=== PATIENT | female | born 2000 | race Hispanic/Latino ===

== ENCOUNTER 2023-08-11 11:20 | Outpatient (CLI) | payer OTHER, SELFPAY ==
--- NOTE | ~2023-08-11 | US_ITS ---
EXAMINATION: US OB /maternal detail DATE: 08/11/2023 12:07 INDICATION: Encounter for screening, unspecified. TECHNIQUE: Real-time ultrasound of the pelvis was performed. COMPARISON: None. FINDINGS: There is a single living fetus in vertex presentation. The placenta is anterior and fundal, far from the cervix. heart rate is 136 beats per minute (bpm). The amniotic fluid index is 11.4 cm, whi ch is normal. The following biometric data were obtained: Biparietal diameter (BPD): 8.7 cm; head circumference (HC): 32.5 cm; abdominal circumference (AC): 33 .6 cm; femur length (FL): 7.0 cm. These measurements are concordant. Estimated weight is 3039 g +/- 456 g, which correlates with the 45th percentile when 08/30/23 is used as estimated date of delivery. As single measurements, these parameters are each equal to the following estimated gestational ages: BPD: 35 weeks 1 days. HC: 36 weeks 5 days. AC: 37 weeks 4 days. FL: 36 weeks 1 days. estimated gestational age based solely on measurements from this exam is 36 weeks 3 days +/- 2 weeks 4 days. The cerebral ventricles, cerebellum, cisterna magna, and visualized portions of the spine are normal. The heart is normal. The diaphragm, stomach, and bladder are normal. The kidneys are not well visual ized. The umbilical cord is not well evaluated. IMPRESSION: 1. Single living fetus in vertex presentation. 2. Estimated weight is 3039 g +/- 456 g, which correlates with the 45th percentile when 4 is used as estimated date of delivery. 3. kidneys and umbilical cord not well evaluated. Reviewed, dictated and finalized at location E. [employer] IMPRESSION: 1. Single living fetus in vertex presentation. 2. Estimated weight is 3039 g +/- 456 g, which correlates with the 45th percentile when 08/30/23 is used as estimated date of delivery. 3. kidneys and umbilical cord not well evaluated.
== END 2023-08-11 11:21 ==
LOC: MICIMG 11:21
PROVIDERS: PCP Obstetrics & Gynecology Gynecology; Visit Provider Obstetrics & Gynecology Gynecology
DX: Z36.9 Encounter for antenatal screening, unspecified (principal)
CPT/HCPCS: 76805

== ENCOUNTER 2023-08-26 09:39 | Inpatient (IN) | payer OTHER, SELFPAY ==
[2023-08-26] VITALS (73 sets, daily range): BP systolic 79–133; BP diastolic 38–91; PULSE 64–110; TEMP 36.8–37; O2SAT 89–100; BMI 42.4
[2023-08-26 10:56] LABS: Basophils Percent Auto 0.4 % (0.2-1.2); Eosinophils Absolute Auto 0.1 K/mm3 (0-0.3); Eosinophils Percent Auto 1.2 % (0-4.4); Hematocrit 32.7 % (37.0-47.0); Hemoglobin 11.4 g/dL (12.0-15.0); Immature Granulocyte Absolute 0.08 K/mm3 (0.00-0.031); Immature Granulocyte Percent A 0.8 % (0-0.5); Lymphocytes Absolute Auto 1.83 K/mm3 (0.9-3.2); Lymphocytes Percent Auto 17.6 % (18.3-44.2); Mean Corpuscular HGB Conc 34.9 g/dl (32-36); Mean Corpuscular Hemoglobin 31.1 pg (26-34); Mean Corpuscular Volume 89.1 fl (80-100); Mean Platelet Volume 10.8 fl (7.4-10.4); Monocytes Absolute Auto 0.8 K/mm3 (0.1-0.6); Monocytes Percent Auto 7.6 % (2.6-8.5); Neutrophils Absolute Auto 7.5 K/mm3 (1.3-6.7); Neutrophils Percent Auto 72.4 % (45.5-73.1); Platelet Count Result 212 k/mm3 (150-375); Red Blood Count 3.67 M/mm3 (4.2-5.4); Red Cell Distribution Width 14.4 % (11.5-14.5); White Blood Count 10.4 K/mm3 (4.5-10.0)
[2023-08-26] MEDS: miSOPROStol 25 MCG TABLET XX (10:57)
--- NOTE | 2023-08-26 10:59 | LDADM ---
This patient, Kasey Blanca, was admitted to Labor/Delivery/Recovery 107 on 08/26/23 at 09:39. Plans for labor, pain management and were discussed with patient. Patient/family oriented to hospital policies and general routines including ID bracelet, bed and alarms, visiting hours, pain management, procedures, bathroom and other care routines, personal items, smoking policy, room service/diet and guest tray routines, security routines, and visiting hours. Patient/Family are encouraged to report perceived risks to care and to ask questions if they do not understand what they are told or what they should do. See OBIX for further documentation.
[2023-08-26 12:44] LABS: Rapid Plasma Reagin Non-Reactive (NonReactive)
[2023-08-26] MEDS: LACTATED RINGERS 1,000 ML 125 ML IV CONT ×2 (16:13→20:53)
[2023-08-26] MEDS: OXYTOCIN 30 UNITS/NS 500 ML 30 UNITS/500 ML BAG 6 UNITS IV CONT (16:14)
--- NOTE | 2023-08-26 16:58 | WPDANESEPP ---
Anes - Eval Pre Procedure Procedure: Labor epidural Date/Time: 08/26/23 16:58 Surgeon: Cristina Preop Diagnosis: Abdominal pain with contractions Pre Op Diagnosis: IOL Patient Data Age: 22 Gender: F Height: 1.52 m Weight: 98.5 kg Last Vital Signs Pulse 69 08/26/23 16:30 BP 110/71 08/26/23 16:30 O2 Del Method Room Air 08/26/23 10:58 Allergies Allergy/AdvReac Type Severity Reaction Status Date / Time No Known Allergies Allergy Verified 08/03/23 15:33 Home Medications Medication Instructions Recorded Confirmed Type Classic 1 tab-cap PO DAILY 08/03/23 08/03/23 History levothyroxine 25 mcg tablet 25 mcg PO DAILY 08/03/23 08/03/23 History valacyclovir 500 mg tablet 500 mg PO Q12H 08/03/23 08/03/23 History (Valtrex) Laboratory Tests 08/26/23 08/26/23 10:47 10:49 WBC 10.4 H K/mm3 (4.5-10.0) RBC 3.67 L M/mm3 (4.2-5.4) Hgb 11.4 L g/dL (12.0-15.0) Hct 32.7 L % (37.0-47.0) MCV 89.1 fl (80-100) MCH 31.1 pg (26-34) MCHC 34.9 g/dl (32-36) RDW 14.4 % (11.5-14.5) Plt Count 212 k/mm3 (150-375) MPV 10.8 H fl (7.4-10.4) Immature Gran % (Auto) 0.8 H % (0-0.5) Neut % (Auto) 72.4 % (45.5-73.1) Lymph % (Auto) 17.6 L % (18.3-44.2) [place] % (Auto) 7.6 % (2.6-8.5) Eos % (Auto) 1.2 % (0-4.4) Baso % (Auto) 0.4 % (0.2-1.2) Lymph # (Auto) 1.83 K/mm3 (0.9-3.2) [place] # (Auto) 0.8 H K/mm3 (0.1-0.6) Eos # (Auto) 0.1 K/mm3 (0-0.3) Baso # (Auto) 0.0 K/mm3 (0.0-0.1) Abs Immat Gran (auto) 0.08 H K/mm3 (0.00-0.031) Absolute Neuts (auto) 7.5 H K/mm3 (1.3-6.7) Absolute Nucleated RBC 0.000 K/mm3 (0.0-0.012) Nucleated RBC % 0.0 % (0.0-0.2) RPR Non-reactive (NonReactive) Blood Type B Positive Antibody Screen Negative : gestational age HCG: positive Patient hx anesthesia problems: none Family hx anesthesia problems: none Results Review: All pre-operative results and documents have been reviewed as part of the pre-operative evaluation. [facility] Past Medical History Medical History Hypothyroidism and not yet delivered STD (female) Family History Family History Father Prostate carcinoma Grandparent Diabetes mellitus Grandparent Acute myocardial infarction Social History Social History Smoking status: Never smoker Substance use: never Do You Feel Safe in your Home?: Yes Lack of Transportation: No Lack of Food: Never True Current Housing: I Have Housing Concerned About Future Housing: No Difficulty Paying Gas/Electric Bills: No Difficulty Paying for Meds: No Currently Unemployed: No Education: Bachelor's Degree Difficulty w/ Childcare or Family Care: No Spiritual care concerns: No Exam Day of Procedure 08/26/23 16:58 Patient weight: morbidly obese
--- NOTE | 2023-08-26 17:12 | WPDOBADMIT ---
Obstetrics - Admit Note Admission Note: record reviewed. No pertinent additions to the history and/or any subsequent changes in the physical findings that are not consistent with the expected course of the were found. Additions to the history and/or subsequent changes in the physical findings follow. Here for MIL. Cytotec x 2. Now -/-3 anterior, AROM with clear fluid FHTs Cat I MIL ongoing
[2023-08-27] VITALS (317 sets, daily range): BP systolic 78–130; BP diastolic 35–98; PULSE 52–128; RESP 16–18; TEMP 36.3–37.2; O2SAT 94–100
[2023-08-27] MEDS: LACTATED RINGERS 1,000 ML 125 ML IV CONT ×3 (00:26→17:13)
[2023-08-27] MEDS: SODIUM CHLORIDE 0.9% IV 1,000 ML 150 ML I-UTERINE (03:15)
[2023-08-27] MEDS: ONDANSETRON INJ 4 MG/2 ML VIAL IV PUSH ×2 (06:50→17:09)
--- NOTE | 2023-08-27 09:03 | PM.OBPNLAB ---
Pain Control Date/time seen: 08/27/23 09:03 Pain control: epidural (comfortable) Pelvic Exam Dilation (cm): 6 Effacement (%): 70 station: -2 Amniotic membrane status: Ruptured Contractions Monitor mode: Internal Contraction pattern: Regular Status status: Category l Assessment and Plan Assessment: induction ongoing Plan: continuous present management
[2023-08-27] MEDS: OXYTOCIN 30 UNITS/NS 500 ML 30 UNITS/500 ML BAG 6 UNITS IV CONT (11:03)
[2023-08-27] MEDS: AMPICILLIN 2 GM/NS 100 ML 2 GM/100 ML BAG IVPB (11:04)
[2023-08-27] MEDS: AMPICILLIN 1 GM/NS 50 ML 1 GM/50 ML BAG IVPB (15:06)
--- NOTE | 2023-08-27 16:51 | PM.IMHP ---
H&P: HPI History of Present Illness Date/Time: 08/27/23 16:51 Chief Complaint: Failure to progress Narrative: The patient is a 22 yo G1 @39 4/7 wks admitted for labor induction. Initially progresed well from cl\th to 6 cm. initially -3 station but at noon dropped to -1. Over past 5 hours remains 6 cm. Contractions adequate. Rec. csection and couple agrees. Questions answered and case explained. Patient voices understanding and agrees to proceed. Upon requesting the case to anesthesia, staff was informed we would be following to additional cases unless case became emergent. As I am not personnel officer this weekend, I am turning the case over to Nader Haq MD and he has agreed to proceed with when staffing is available. the patient was a late transfer of care at 33 weeks. labs B positive, rubella immune, RPR negative, hepatitis-B surface antigen negative, HIV negative. Group B strep culture negative. 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 Hypothyroidism Surgical History Surgical History (Updated 08/27/23 @ 16:57 by Mel Evans MD) Hx laparoscopic cholecystectomy Family History Family History Father Prostate carcinoma Grandparent Diabetes mellitus Grandparent Acute myocardial infarction Social History Social History Smoking status: Never smoker Substance use: never Do You Feel Safe in your Home?: Yes Lack of Transportation: No Lack of Food: Never True Current Housing: I Have Housing Concerned About Future Housing: No Difficulty Paying Gas/Electric Bills: No Difficulty Paying for Meds: No Currently Unemployed: No Education: Bachelor's Degree Difficulty w/ Childcare or Family Care: No Spiritual care concerns: No Meds Home Medications and Allergies Home Medications Medication Instructions Recorded Confirmed Type Classic 1 tab-cap PO DAILY 08/03/23 08/03/23 History levothyroxine 25 mcg tablet 25 mcg PO DAILY 08/03/23 08/03/23 History valacyclovir 500 mg tablet 500 mg PO Q12H 08/03/23 08/03/23 History (Valtrex) Allergies Allergy/AdvReac Type Severity Reaction Status Date / Time No Known Allergies Allergy Verified 08/03/23 15:33 Vital Signs Vital Signs - 24 hr 08/26/23 17:00 08/26/23 17:30 08/26/23 18:00 Temperature 98.6 F Pulse Rate 73 73 64 Respiratory Rate Blood Pressure 118/76 120/83 125/81 Pulse Oximetry 08/26/23 19:00 08/26/23 19:30 08/26/23 20:00 Temperature Pulse Rate 69 77 66 Respiratory Rate Blood Pressure 121/72 122/76 133/76 Pulse Oximetry 08/26/23 20:30 08/26/23 21:00 08/26/23 21:13 Temperature Pulse Rate 75 72 85 Respiratory Rate Blood Pressure 108/82 133/82 126/71 Pulse Oximetry 89 L 08/26/23 21:15 08/26/23 21:18 08/26/23 21:21 Temperature Pulse Rate 74 104 H 75 Respiratory Rate Blood Pressure 122/71 127/75 112/68 Pulse Oximetry 100 08/26/23 21:23 08/26/23 21:25 08/26/23 21:28 Temperature Pulse Rate 73 87 81 Respiratory Rate Blood Pressure 116/65 119/71 115/61 Pulse Oximetry 100 100 08/26/23 21:30 08/26/23 21:33 08/26/23 21:35 Temperature Pulse Rate 86 80 88 Respiratory Rate Blood Pressure 121/67 110/71 112/74 Pulse Oximetry 100 08/26/23 21:38 08/26/23 21:40 08/26/23 21:43 Temperature Pulse Rate 73 74 76 Respiratory Rate Blood Pressure 112/59 L 108/64 111/65 Pulse Oximetry 100 100 08/26/23 21:45 08/26/23 21:48 08/26/23 21:50 Temperature Pulse Rate 76 81 80 Respiratory Rate Blood Pressure 108/60 112/59 L 109/68 Pulse Oximetry 100 08/26/23 21:53 08/26/23 21:55 08/26/23 21:58 Temperature Pulse Rate 82 90 92 Re
[2023-08-27] MEDS: AZITHROMYCIN 500 MG/NS 250 ML 500 MG/250 ML BAG 250 MG IVPB (17:08)
[2023-08-27] MEDS: FAMOTIDINE 20 MG/2 ML VIAL IV PUSH (17:09)
[2023-08-27] MEDS: ceFAZolin 2 GM/D5W 50 ML 2 GM/50 ML BAG IVPB (17:30)
--- NOTE | 2023-08-27 18:04 | P.PNAN_ITS ---
Anes - Eval Final PreProcedure Day of Procedure 08/27/23 18:04 Patient weight: morbidly obese Heart: regular rate and rhythm Lungs: clear to auscultation and normal air movement Airway: Mallampati scale class II Neurological: alert and oriented Last oral intake: >/= 8 hours ASA classification: III Emergent: no Anesthetic plan: proceed Anesthesia type and monitoring: regional epidural and standard monitoring Other findings: Arrest of dilation Results Review: All pre-operative results and documents have been reviewed as part of the pre- operative evaluation. Informed Consent: The patient's anesthetic plan and its attendant risks and benefits were discussed with the patient/family/POA. Questions were solicited and answers provided to the satisfaction of the patient/family/POA.
--- NOTE | 2023-08-27 18:15 | W.PM.OBCSD ---
OB - Delivery Note Procedure Delivery date: 08/27/23 Pre-op diagnosis: Arrest of Dilation Post-op Diagnosis: Same Procedure Performed: Primary Surgeon: Reymundo Haq MD Anesthesia type: Epidural Description of Procedure/Findings: Findings: Uterus, bilateral ovaries and Fallopian tubes unremarkable. Techniques: The patient was taken to the operating room where she was prepared and draped in the usual sterile fashion in dorsal supine position with a leftward tilt. She received cefazolin and azithromycin preoperatively. Epidural anesthesia was found to be adequate. A Pfannenstiel skin incision was made and carried through to the underlying layer of the fascia. The fascia was incised in the midline and the incision was extended laterally. The fascia was dissected free of the underlying rectus muscles. The rectus muscles were in the midline. The peritoneum was identified, tented up and entered sharply. The peritoneal incision was extended superiorly and inferiorly with good visualization of the bladder. The bladder blade was placed. The vesicouterine peritoneum was identified, tented up and entered sharply. The incision was extended laterally and the bladder flap was developed. The bladder blade was replaced. The uterus was then incised sharply in a transverse fashion along the lower uterine segment. The incision was extended laterally. The infant's head was delivered atraumatically to the sterile field, followed by the body. The nose and mouth were bulb suctioned. After a delay, the cord was clamped and cut. The was handed off the field. Cord blood was collected. The placenta was removed manually and was passed off the field. The uterus was exteriorized and cleared of all clots and debris. The uterine incision was reapproximated using 0 Monocryl in a running, locked fashion. Excellent hemostasis resulted as did excellent reapproximation of the normal anatomy. The uterus was returned the abdomen. The pelvis was irrigated copiously with warmed normal saline. Rigorous hemostasis was assured. The fascial layer was reapproximated using 0 Vicryl in a running fashion. The skin was closed with a running, subcuticular stitch of 4 0 Vicryl. Dermaflex was applied externally. Sponge, lap, needle and instrument counts were correct. The patient was taken to the recovery room in stable condition. The infant went to the nursery. I was present and scrubbed the entire procedure. Specimen: Yes (cord blood) Estimated Blood Loss: 750 Drains: Yes (Bailey) Packing: No Pathology: None sent Complications: None Condition: Stable Disposition: PACU Baby Date of : 08/27/23 Time of : 17:46 Weeks of gestation at delivery: 39 gender: Male Weight (pounds): 7 Weight (ounces): 4 presentation: vertex Placenta delivery description: Manual Removal and Normal Configuration Cord Vessel Description: 3 Vessels and Delayed Cord Clamping score one minute: 9 score five minutes: 9
--- NOTE | 2023-08-27 18:20 | PM.OBDSVD ---
DS: Admitting Diagnosis Discharge Date 08/30/23 Admitting Diagnosis IUP at 39 3/7 weeks DS: Discharge Diagnosis Discharge Diagnosis (1) delivery delivered: Code(s): O82 - Encounter for delivery without indication Status: Acute OB - DS: Summary OB Procedures : None OB Procedures Intrapartum: OB Procedures: : None Peripartum Data Procedures: Procedures Operation Date: 08/27/23 18:00 Actual Procedure Side Surgeon p Section Bilateral Reymundo Haq MD Time Spent with Patient Time attestation: Total time spent providing and/or coordinating discharge services: Discharge Plan Discharge Attending physician on discharge: Mel Evans Consulting providers: Reymundo Haq; Peña Kiran; Khris Christensen; Katelyn Patricia Discharging Clinician: Mel Evans Patient Disposition: Home, Self-Care Activity: may shower, may drive after 2 weeks and pelvic rest Diet: regular Wound Care Instructions: incision open to air Discharge Instructions: Call or return if temperature above 100.4? F, increased abdominal pain, increased vaginal bleeding or any new problems. Education: Mom and Baby Guide Given to: Mother Follow-Up: Call your delivering provider's office for an appointment to be seen in: Call for appointment Mom and baby should come to the [facility] for the follow-up appointment. Appointment Date/Time: September 01, 2023 at 10:00 am What to expect at your follow-up visit: Call [phone] if you are unable to keep your appointment time. BREAST CARE: * Wear a snug supportive bra. * For engorgement discomfort: Breast Feeding: * Apply warm moist washcloths * Express milk as needed to relieve engorgement * Wear loose clothing Bottle Feeding: * May apply ice packs * For sore nipples: * Identify correct latch-on * Apply warm moist washcloths before and after nursing * Air dry nipples after nursing * May apply Lansinoh cream to nipples ABDOMINAL INCISION: * Allow incision to air dry * Do NOT use lotions for powders on your incision * When showering, allow soap and water to run over the incision, but do not wash incision PERINEAL CARE: * Until bleeding stops, use your carmen bottle after urinating * Change your pad frequently throughout the day * You may take sitz baths several times a day (fill your bathtub with warm water and soak for 20 minutes.) Do NOT bathe in the water * No tub baths until seen by your physician - You may shower ACTIVITY: * Rest as much as possible. * Do not exercise or lift anything heavier than your baby (such as laundry or other children.) * Avoid stairs or driving as much as possible. * Do not put anything into the vagina. No douching, tampons, or sexual activity until seen by physician. NOTIFY PHYSICIAN IF YOU HAVE ANY QUESTIONS OR IF ANY OF THE FOLLOWING SYMPTOMS OCCUR: * If your incision becomes red, swollen, or more painful than what you have experienced in the hospital. * If your vaginal bleeding becomes foul smelling. * If your vaginal bleeding becomes more heavy than a period or if your bleeding changes from pink to bright red. However, you may pass an occasional walnut-sized clot once or twice for the first week . * If you experience a sharp, shooting pain in you calves. * If you discover a hard, reddened area on your breast or if you experience flu-like symptoms. DIET: * Eat regular, well-balanced meals. * Drink plenty of fluids daily. If , drink to thirst. Patient Instructions: Expression, Collection and Storage of Breast Milk (DC), How to Hold and Breastfeed Your Baby (DC), (DC) Stand Alone Forms: General Discharge Information Follow-up/Referrals: Mel Evans MD [Physician] - Call for Appointment
[2023-08-27] MEDS: OXYTOCIN 30 UNITS/NS 500 ML 30 UNITS/500 ML BAG 125 UNITS IV CONT (18:35)
[2023-08-27] MEDS: ACETAMINOPHEN 500 MG TABLET 1000 MG PO (18:35)
--- NOTE | 2023-08-27 20:58 | OBPPTRN ---
Patient transferred to post room #283 via stretcher at this time. Support person- partner- FOB Oliverio present. Oriented to unit, room, information board, rooming in, admission packet and security measures. Patient and FOB verbalize understanding.
[2023-08-27] MEDS: valACYclovir HCL 500 MG TABLET PO (21:49)
[2023-08-27] MEDS: HYDROcodone/acetaminophen (*CRX) 5-325 MG TABLET 1 TAB PO (21:49)
[2023-08-27] MEDS: DOCUSATE SODIUM 100 MG CAPSULE PO (21:50)
[2023-08-27] MEDS: DEXTROSE 5%/0.45% SOD CHL 1,000 ML 125 ML IV CONT (22:46)
[2023-08-28 00:41] VITALS: BP 110/72; PULSE 77; RESP 18; TEMP 36.8; O2SAT 99
[2023-08-28] MEDS: KETOROLAC 15 MG/ML VIAL (*BKC) IV PUSH (00:41)
[2023-08-28] MEDS: ACETAMINOPHEN 325 MG TABLET 650 MG PO ×4 (00:41→19:04)
[2023-08-28 04:20] VITALS: BP 97/57; PULSE 78; RESP 18; TEMP 36.5; O2SAT 99
[2023-08-28] MEDS: HYDROcodone/acetaminophen (*CRX) 5-325 MG TABLET 1 TAB PO ×3 (04:20→16:59)
[2023-08-28 04:33] LABS: Basophils Percent Auto 0.2 % (0.2-1.2); Eosinophils Absolute Auto 0.1 K/mm3 (0-0.3); Eosinophils Percent Auto 0.6 % (0-4.4); Hematocrit 25.8 % (37.0-47.0); Hemoglobin 8.6 g/dL (12.0-15.0); Immature Granulocyte Absolute 0.09 K/mm3 (0.00-0.031); Immature Granulocyte Percent A 0.5 % (0-0.5); Lymphocytes Absolute Auto 1.82 K/mm3 (0.9-3.2); Lymphocytes Percent Auto 10.9 % (18.3-44.2); Mean Corpuscular HGB Conc 33.3 g/dl (32-36); Mean Corpuscular Hemoglobin 30.1 pg (26-34); Mean Corpuscular Volume 90.2 fl (80-100); Mean Platelet Volume 10.7 fl (7.4-10.4); Monocytes Percent Auto 6.2 % (2.6-8.5); Neutrophils Absolute Auto 13.7 K/mm3 (1.3-6.7); Neutrophils Percent Auto 81.6 % (45.5-73.1); Platelet Count Result 171 k/mm3 (150-375); Red Blood Count 2.86 M/mm3 (4.2-5.4); Red Cell Distribution Width 14.4 % (11.5-14.5); White Blood Count 16.7 K/mm3 (4.5-10.0)
[2023-08-28] MEDS: LEVOTHYROXINE SODIUM 25 MCG TABLET PO (06:46)
--- NOTE | 2023-08-28 06:50 | PC.NURSE ---
[id number] Patient's IV in her right hand infiltrated, RN tried to flush before giving IV Toradol and was unable to do so, IV to be discontinued and patient to be given Ibuprofen PO instead. Patient is eating a regular diet and has no nausea.
[2023-08-28] MEDS: IBUPROFEN 600 MG TABLET PO ×3 (06:57→19:04)
[2023-08-28 07:00] VITALS: BP 96/60; PULSE 85; RESP 16; TEMP 36.6; O2SAT 100
[2023-08-28] MEDS: LIDOCAINE 5% PATCH 1 PATCH TRANSDERM (07:09)
[2023-08-28] MEDS: DOCUSATE SODIUM 100 MG CAPSULE PO ×2 (10:56→16:59)
[2023-08-28] MEDS: MULTIVIT/MIN/PREN/FOL AC/IRON TABLET 1 TAB PO (10:56)
[2023-08-28] MEDS: POLYSACCHARIDE IRON COMPLEX 150 MG CAPSULE PO ×2 (10:56→16:58)
[2023-08-28] MEDS: SIMETHICONE 80 MG TAB.CHEW PO ×2 (10:56→16:58)
--- NOTE | 2023-08-28 11:40 | PM.OBPNVD ---
OB - PN: Subj Subjective Date/time seen: 08/28/23 11:40 Narrative: Pain OK. Tolerating diet. Would like circumcision for son. OB - PN: Obj Data Labs 08/28/23 04:12 Labs: Laboratory Results - last 24 hr 08/28/23 04:12 WBC 16.7 H RBC 2.86 L Hgb 8.6 L Hct 25.8 L MCV 90.2 MCH 30.1 MCHC 33.3 RDW 14.4 Plt Count 171 MPV 10.7 H Immature Gran % (Auto) 0.5 Neut % (Auto) 81.6 H Lymph % (Auto) 10.9 L [place] % (Auto) 6.2 Eos % (Auto) 0.6 Baso % (Auto) 0.2 Lymph # (Auto) 1.82 [place] # (Auto) 1.0 H Eos # (Auto) 0.1 Baso # (Auto) 0.0 Abs Immat Gran (auto) 0.09 H Absolute Neuts (auto) 13.7 H Absolute Nucleated RBC 0.000 Nucleated RBC % 0.0 OB - PN A/P Plan Comments: A: POD#1, doing well. P: Routine care. Reviewed circumcision in detail. Exam Narrative: AVSS I/O OK ABD soft, nontender, fundus firm. Incision c/d/i. EXT nontender
[2023-08-28 13:00] VITALS: BP 105/61; PULSE 85; RESP 16; TEMP 36.3; O2SAT 98
--- NOTE | 2023-08-28 13:38 | WPDANLDPN2 ---
Anes-Prog Note L&D Date/Time: 08/28/23 13:38 Comfortable throughout: section Neuraxial method: epidural Epidural/Spinal procedure site: clean & non-tender Neuro status: Neuro function grossly intact. Cardiovascular status: normal Respiratory status: normal Airway patency: baseline Mental status: baseline Post-Op hydration status: normal Vital Signs: Last Vital Signs Temp 36.5 C 08/28/23 04:20 Pulse 78 08/28/23 04:20 Resp 18 08/28/23 04:20 BP 97/57 L 08/28/23 04:20 Pulse Ox 99 08/28/23 04:20 O2 Del Method Room Air 08/27/23 20:15 Pain score (VAS): 3/10 I/O: Intake & Output 08/27/23 08/28/23 08/28/23 23:59 07:59 15:59 Intake Total 1085.4 550 Output Total 800 650 Balance 285.4 -100 Post-procedural complaints: none Patient feedback: Patient satisfied with anesthetic care.
--- NOTE | 2023-08-28 13:38 | WPDANLDNPN2 ---
Anes-Prog Note L&D-Neuraxial Date/Time: 08/28/23 13:38 Neuraxial medications: epidural PF morphine Opiod-related complaints: none Patient feedback: Patient satisfied with post-operative pain management.
[2023-08-28] MEDS: LANOLIN (LANSINOH) 7.5 GM CREAM 1 APPLIC TOPICAL (15:58)
[2023-08-28 17:00] VITALS: BP 111/64; PULSE 85; RESP 16; TEMP 36.6; O2SAT 100
[2023-08-28 18:50] VITALS: BP 111/72; PULSE 80; RESP 18; TEMP 36.6; O2SAT 98
[2023-08-28] MEDS: HYDROcodone/acetaminophen (*CRX) 10-325 MG TABLET 1 TAB PO (22:50)
[2023-08-29] MEDS: IBUPROFEN 600 MG TABLET PO ×4 (02:03→21:06)
[2023-08-29] MEDS: ACETAMINOPHEN 325 MG TABLET 650 MG PO ×4 (02:03→21:05)
[2023-08-29] MEDS: HYDROcodone/acetaminophen (*CRX) 10-325 MG TABLET 1 TAB PO ×2 (02:55→07:12)
[2023-08-29] MEDS: LIDOCAINE 5% PATCH 1 PATCH TRANSDERM (04:51)
[2023-08-29] MEDS: SIMETHICONE 80 MG TAB.CHEW PO ×5 (04:52→21:06)
[2023-08-29] MEDS: DOCUSATE SODIUM 100 MG CAPSULE PO ×2 (07:12→17:05)
[2023-08-29] MEDS: POLYSACCHARIDE IRON COMPLEX 150 MG CAPSULE PO ×2 (07:12→17:05)
[2023-08-29] MEDS: LEVOTHYROXINE SODIUM 25 MCG TABLET PO (07:12)
[2023-08-29 08:19] VITALS: BP 93/70; PULSE 79; RESP 18; TEMP 36.6; O2SAT 98
[2023-08-29] MEDS: MULTIVIT/MIN/PREN/FOL AC/IRON TABLET 1 TAB PO (08:43)
--- NOTE | 2023-08-29 10:07 | PM.OBPNVD ---
OB - PN: Subj Subjective Date/time seen: 08/29/23 10:07 Narrative: Pain OK. Tolerating diet. OB - PN: Obj Data Labs 08/28/23 04:12 OB - PN A/P Plan Comments: A: POD#2, doing well. P: Routine care. Plan home tomorrow. Exam Narrative: AVSS I/O OK ABD soft, nontender, fundus firm. Incision c/d/i. EXT nontender
[2023-08-29] MEDS: HYDROcodone/acetaminophen (*CRX) 5-325 MG TABLET 1 TAB PO ×2 (13:28→21:06)
[2023-08-29 20:02] VITALS: BP 126/65; PULSE 83; RESP 18; TEMP 36.4; O2SAT 100
[2023-08-30] MEDS: IBUPROFEN 600 MG TABLET PO ×3 (03:09→15:30)
[2023-08-30] MEDS: ACETAMINOPHEN 325 MG TABLET 650 MG PO ×3 (03:09→15:30)
[2023-08-30] MEDS: LEVOTHYROXINE SODIUM 25 MCG TABLET PO (06:59)
[2023-08-30] MEDS: HYDROcodone/acetaminophen (*CRX) 10-325 MG TABLET 1 TAB PO (07:39)
[2023-08-30 08:13] VITALS: BP 103/66; PULSE 75; RESP 18; TEMP 36.4; O2SAT 100
[2023-08-30] MEDS: SIMETHICONE 80 MG TAB.CHEW PO (09:00)
[2023-08-30] MEDS: MULTIVIT/MIN/PREN/FOL AC/IRON TABLET 1 TAB PO (09:00)
[2023-08-30] MEDS: POLYSACCHARIDE IRON COMPLEX 150 MG CAPSULE PO (09:00)
--- NOTE | 2023-08-30 09:52 | PM.OBPNVD ---
OB - PN: Subj Subjective Date/time seen: 08/30/23 09:52 Patient comments: no complaints and pain well controlled baby status: doing well OB - PN: Obj Data Labs 08/28/23 04:12 OB - PN A/P Plan day: 3 Plan: routine care, discharge home and other (unsure control plans) Time Spent With Patient Time: Total time spent is greater than 50% in coordination of care (as documented) at patient's floor/unit and/or counseling patient: Exam Narrative: inc c/d/i : Bimanual exam- vagina & uterus: other (Uterus firm, nt @U)
--- NOTE | 2023-08-30 10:00 | PC.NURSE ---
[id number] Introductions were made and Parents inquire for how to get to breastfeed. We discussed their questions and concerns. Encouraged practicing to get familiar with the skill. Parents have been mostly bottle feeding formula since with rare and/or pumping. Encouraged understanding of the benefits of skin to skin (demonstrating unwrapping and placing upright on her chest), stimulating with massage touch, changing positions to encourage wakefulness, how to watch for early feeding cues, responsive feeding, feeding on demand (aiming for 8-12 times in 24 hours, about every 2-3 hours), milk production, building/maintaining a milk supply, duration of feeding, signs of adequate intake/output and how to record on the feeding sheet. Patient encouraged to pump for adequate milk production every 3 hours (8 times in 24 hours) 1-2 times at night. Father of baby is bottle feeding at this time (full bottle feeds not demonstrating paced bottle feeding method) and mother is tired demonstrating dozing during conversation. Reinforced understanding of milk production, transition of milk, signs of adequate intake, transition of stool, prevention/relief of engorgement, plugged ducts, mastitis, responsive watching for feeding cues and when to call a provider using the resource of the feeding sheet along with the mom and baby guide. Parents voiced understanding of the education shared along with mom/baby guide, feeding sheet, and available services provided. Reported to the Primary RN.
--- NOTE | 2023-08-30 12:00 | PC.NURSE ---
Patient viewed the discharge video Mother & Baby Care, The First Two Weeks online. Patient was given the opportunity and encouraged to ask questions. Patient verbalized understanding of information shared and has been given the mother/baby guide for home reference.
--- NOTE | 2023-08-31 20:30 | WPDHPUPDATE1 ---
History and Physical Update Update Date/Time: 08/31/23 20:30 Late entry from 08/27/23 at 1745. History and Physical has been reviewed, including an updated exam of the patient. There are NO changes in the patient's condition. Risks, benefits, and alternatives have been discussed and questions answered. Patient agrees to proceed with procedure.
== END 2023-08-30 15:55 | disposition home or self-care (01) | DRG 788 ==
LOC: ANHLDR 08-27 18:20 → ANHOB2 08-27 21:04
PROVIDERS: Obstetrics & Gynecology; Admitting Provider Obstetrics & Gynecology Gynecology; Visit Provider Obstetrics & Gynecology Gynecology
PROC: 10D00Z1 Extraction of Products of Conception, Low, Open Approach (ICD-10-PCS; CPT 59514; principal; 2023-08-27 18:00)
DX: O98.52 Other viral diseases complicating childbirth (principal); Z37.0 Single live birth; Z3A.39 39 weeks gestation of pregnancy; O62.2 Other uterine inertia; B00.1 Herpesviral vesicular dermatitis
CPT/HCPCS: 36415; 85025; 86592; 86850; 86900; 86901; A9270; J0290; J0456; J0690; J1885; J2274; J2405; J2590; J2795; J7030; J7120